=== PATIENT | male | born 1985 | race Caucasian/White ===

== ENCOUNTER → 2019-08-16 08:37 | Outpatient (CLI) | payer BC, SELFPAY ==
[2019-08-16 10:12] LABS: Add Manual Diff / Slide Review NO; Basophils Absolute Auto 0 /uL (0-100); Basophils Percent Auto 0.6 % (0-2); Eosinophils Absolute Auto 100 /uL (0-450); Eosinophils Percent Auto 1.9 % (2-4); Lymphocytes Absolute Auto 2300 /uL (1100-4500); Lymphocytes Percent Auto 49.3 % (25-40); Mean Corpuscular HGB Conc 34.8 % (30-36); Mean Corpuscular Hemoglobin 30.3 PG (26-34); Mean Corpuscular Volume 87.1 fL (80-100); Monocytes Absolute Auto 300 /uL (0-900); Monocytes Percent Auto 7.4 % (3-14); Neutrophils Absolute Auto 1900 /uL (1500-7000); Neutrophils Percent Auto 40.8 % (50-75); Platelet Count 252 X10^3/uL (150-400); Red Blood Cell Count 4.94 X10^6/uL (4.5-5.9); Red Cell Distribution Width 13.2 % (11.6-14.8); White Blood Cell Count 4.6 X10^3/uL (4.5-11.0)
[2019-08-16 10:13] LABS: Alanine Aminotransferase 25 IU/L (21-72); Albumin 4.7 g/dL (3.5-5.0); Albumin Globulin Ratio 1.5 (1.0-2.8); Alkaline Phosphatase 79 U/L (38-126); Aspartate Aminotransferase 38 IU/L (17-59); BUN Creatinine Ratio 13.6 (6-22); Bilirubin Total 2.4 mg/dL (0.2-1.3); Blood Urea Nitrogen 15 mg/dL (9-20); Calcium 9.8 mg/dL (8.4-10.2); Carbon Dioxide 29 mmol/L (22-32); Chloride 103 mmol/L (98-107); Estimated Glomerular Filt Rate > 60.0 mL/min (>60); Globulin 3.1 g/dL (1.7-4.1); Glucose 89 mg/dL (70-100); HEMOLYSIS < 15 (0-50); Potassium 4.2 mmol/L (3.4-5.1); Sodium 143 mmol/L (137-145); Total Protein 7.8 g/dL (6.3-8.2)
[2019-08-16 11:19] LABS: TSH w/ Reflex to FT4 2.26 uIU/mL (0.47-4.68)
[2019-08-16 11:36] LABS: HIV 1 & 2 Ab/Ag 4th Gen Combo NEGATIVE (NEGATIVE); Hep C Virus Ab w/Reflex Quant NEGATIVE s/c (NEGATIVE)
[2019-08-19 09:00] LABS: Syphilis AB Cascading Reflex NEGATIVE (Negative)
== END ==
PROVIDERS: PCP Nurse Practitioner; Visit Provider Nurse Practitioner
DX: Z11.3 Encounter for screening for infections with a predominantly sexual mode of transmission (principal); F32.9 Major depressive disorder, single episode, unspecified; F90.0 Attention-deficit hyperactivity disorder, predominantly inattentive type; R41.3 Other amnesia; R63.1 Polydipsia; A64 Unspecified sexually transmitted disease; R30.0 Dysuria
CPT/HCPCS: 80053; 84443; 85025; 86780; 86803; 87389

== ENCOUNTER → 2019-09-27 11:16 | Outpatient (CLI) | payer BC, SELFPAY ==
[2019-09-27 12:24] LABS: Alanine Aminotransferase 37 IU/L (<50); Albumin 4.5 g/dL (3.5-5.0); Albumin Globulin Ratio 1.7 (1.0-2.8); Alkaline Phosphatase 62 U/L (38-126); Aspartate Aminotransferase 33 IU/L (17-59); Bilirubin Total 1.7 mg/dL (0.2-1.3); Bilirubin Unconjugated 1.7 mg/dL (0.0-1.1); Cholesterol 188 mg/dL (140-199); Globulin 2.6 g/dL (1.7-4.1); HDL Cholesterol 50 mg/dL (40-60); HEMOLYSIS < 15 (0-50); LDL Cholesterol Calculated 128 mg/dL (<100); Total Protein 7.1 g/dL (6.3-8.2); Triglycerides 48 mg/dL (35-150)
== END ==
PROVIDERS: PCP Nurse Practitioner; Visit Provider Nurse Practitioner
DX: Z00.00 Encounter for general adult medical examination without abnormal findings (principal); R17 Unspecified jaundice
CPT/HCPCS: 36415; 80061; 80076